=== PATIENT | male | born 1950 | race Caucasian/White ===

== ENCOUNTER → 2019-08-09 | Outpatient (CLI) | payer OTHER ==
[~2019-08-09] MED LIST: BARIUM SUSPENSION 2.1% (VANILLA SILQ) 450 ML PO ONE; CATHETER FLUSH 10 ML SYR IV PRN; HOLD METFORMIN - RECEIVED CONTRAST 20 ML VIAL IV SCH; IOHEXOL 350 MG/ML 100 ML (OMNIPAQUE 350) VIAL IV ONE; NS 100 ML (IVPB) BAG IV ONE
--- NOTE | 2019-08-09 13:49 | Diagnostic Imaging Report ---
PROCEDURE: CT chest with contrast, CT abdomen and pelvis with and without contrast. TECHNIQUE: Pre and post intravenous contrast axial imaging of the abdomen and pelvis and post contrast axial imaging of the chest were performed. Auto Exposure Controls were utilized during the CT exam to meet ALARA standards for radiation dose reduction. INDICATION: Prostate carcinoma with elevated PSA. COMPARISON: No prior studies are available for comparison. CT CHEST: No axillary lymphadenopathy is detected. No mediastinal or hilar lymphadenopathy is detected. No pericardial or pleural fluid is detected. The lungs are clear. No infiltrates are seen. No nodules or masses are detected. Osseous structures are unremarkable. IMPRESSION: Unremarkable CT of the chest. No thoracic lymphadenopathy or evidence of pulmonary metastatic disease is identified. CT ABDOMEN AND PELVIS: No discrete liver mass is identified. The gallbladder is unremarkable. No biliary ductal dilatation is seen. The pancreas and spleen are unremarkable. No adrenal mass is identified. Kidneys are unremarkable. No definite calculi or hydronephrosis is detected. Aorta is calcified but non-aneurysmal. No central retroperitoneal or mesenteric lymphadenopathy is seen. No inguinal or iliac lymphadenopathy is identified. The bowel loops are normal caliber. There is no obstruction. There is no free fluid or fluid collection identified. Partially filled urinary bladder is unremarkable. There appears to be a TURP defect present. Prostate is unremarkable. IMPRESSION: Essentially unremarkable CT of the abdomen and pelvis. No abdominal or pelvic lymphadenopathy or evidence of metastatic disease is detected. Dictated by: Dictated on workstation # [id number]
--- NOTE | 2019-08-09 16:02 | Diagnostic Imaging Report ---
INDICATION: Prostate carcinoma. TECHNIQUE: Patient was administered 24.6 mCi of technetium-99m MDP intravenously, and whole body imaging was performed after a 3-hour delay. COMPARISON: No prior studies are available for comparison. FINDINGS: There is normal uptake of activity by the axial and appendicular skeleton. There is uptake by both kidneys with excretion into the urinary bladder. Tiny focus of mild uptake involving a right posterior approximately eighth rib is noted, indeterminate. No other suspicious foci are identified. IMPRESSION: Unremarkable whole body bone scan with the exception of a subtle tiny focus of mild uptake involving the right posterior eighth rib. No CT correlate is identified. Continued follow-up could be obtained. Dictated by: Dictated on workstation # [id number]
== END ==
LOC: CARD 12:18
PROVIDERS: ATTEND Internal Medicine Hematology & Oncology
DX: C61 Malignant neoplasm of prostate (principal)
CPT/HCPCS: 71260; 74178; 78306

== ENCOUNTER 2019-08-25 11:02 | Outpatient (RCR) | payer OTHER ==
[2019-07-29 13:21] LABS: BASOPHILS # (AUTO) 0.1 10^3/uL (0.0-0.1); BASOPHILS % (AUTO) 1 % (0-10); EOSINOPHILS # (AUTO) 0.6 10^3/uL (0.0-0.3); EOSINOPHILS % (AUTO) 9 % (0-10); HEMATOCRIT 40 % (40-54); HEMOGLOBIN 13.9 G/DL (13.3-17.7); LYMPHOCYTES % (AUTO) 29 % (12-44); MEAN CORPUSCULAR HEMOGLOBIN 30 PG (25-34); MEAN CORPUSCULAR HGB CONC 35 G/DL (32-36); MEAN CORPUSCULAR VOLUME 87 FL (80-99); MONOCYTES # (AUTO) 0.5 X 10^3 (0.0-1.0); MONOCYTES % (AUTO) 7 % (0-12); NEUTROPHILS # (AUTO) 3.7 X 10^3 (1.8-7.8); NEUTROPHILS % (AUTO) 54 % (42-75); PLATELET COUNT 209 10^3/uL (130-400); WHITE BLOOD COUNT 6.9 10^3/uL (4.3-11.0)
[2019-07-29 13:47] LABS: ALANINE AMINOTRANSFERASE 32 U/L (0-55); ALBUMIN 4.6 GM/DL (3.2-4.5); ALKALINE PHOSPHATASE 51 U/L (40-136); BILIRUBIN,TOTAL 0.3 MG/DL (0.1-1.0); BUN/CREATININE RATIO 17; CALCIUM 9.5 MG/DL (8.5-10.1); CARBON DIOXIDE 19 MMOL/L (21-32); CHLORIDE 108 MMOL/L (98-107); CREATININE SERUM 0.98 MG/DL (0.60-1.30); GFR ESTIMATED > 60; GLUCOSE 190 MG/DL (70-105); POTASSIUM 4.4 MMOL/L (3.6-5.0); SODIUM 141 MMOL/L (135-145); TOTAL PROTEIN 7.6 GM/DL (6.4-8.2)
== END 2019-10-27 | disposition home or self-care (01) ==
LOC: ONC 11:02
PROVIDERS: ATTEND Internal Medicine Hematology & Oncology
DX: C61 Malignant neoplasm of prostate (principal); I10 Essential (primary) hypertension; E11.9 Type 2 diabetes mellitus without complications; R07.9 Chest pain, unspecified; R00.2 Palpitations
CPT/HCPCS: 80053; 84153; 85025; 99205; 99213; 99214

== ENCOUNTER → 2020-06-13 | Outpatient (CLI) | payer OTHER ==
[~2020-06-13] MED LIST changes: -BARIUM SUSPENSION 2.1% (VANILLA SILQ) 450 ML PO ONE; -CATHETER FLUSH 10 ML SYR IV PRN; +GOSERELIN (ZOLADEX) 10.8 MG SYR SQ SCH; -HOLD METFORMIN - RECEIVED CONTRAST 20 ML VIAL IV SCH; -IOHEXOL 350 MG/ML 100 ML (OMNIPAQUE 350) VIAL IV ONE; -NS 100 ML (IVPB) BAG IV ONE
[2020-06-13 09:43] LABS: BASOPHILS # (AUTO) 0.1 10^3/uL (0.0-0.1); BASOPHILS % (AUTO) 1 % (0-10); EOSINOPHILS # (AUTO) 2.4 10^3/uL (0.0-0.3); EOSINOPHILS % (AUTO) 29 % (0-10); HEMATOCRIT 37 % (40-54); HEMOGLOBIN 12.8 g/dL (13.3-17.7); LYMPHOCYTES % (AUTO) 23 % (12-44); MEAN CORPUSCULAR HEMOGLOBIN 31 pg (25-34); MEAN CORPUSCULAR HGB CONC 34 g/dL (32-36); MEAN CORPUSCULAR VOLUME 90 fL (80-99); MEAN PLATELET VOLUME 10.2 fL (9.0-12.2); MONOCYTES # (AUTO) 0.6 10^3/uL (0.0-1.0); MONOCYTES % (AUTO) 7 % (0-12); NEUTROPHILS # (AUTO) 3.4 10^3/uL (1.8-7.8); NEUTROPHILS % (AUTO) 40 % (42-75); PLATELET COUNT 210 10^3/uL (130-400); WHITE BLOOD COUNT 8.5 10^3/uL (4.3-11.0)
[2020-06-13 09:48] LABS: ALBUMIN 4.4 GM/DL (3.2-4.5); BILIRUBIN,TOTAL 0.7 MG/DL (0.1-1.0); CALCIUM 9.6 MG/DL (8.5-10.1); CREATININE SERUM 1.23 MG/DL (0.60-1.30); POTASSIUM 4.6 MMOL/L (3.6-5.0); TOTAL PROTEIN 7.2 GM/DL (6.4-8.2)
== END ==
LOC: EDSTATUS 10-28 15:30 → ONC 09:24
PROVIDERS: ATTEND Internal Medicine Hematology & Oncology
DX: Z51.11 Encounter for antineoplastic chemotherapy (principal); C61 Malignant neoplasm of prostate; E11.9 Type 2 diabetes mellitus without complications; E78.00 Pure hypercholesterolemia, unspecified; I10 Essential (primary) hypertension
CPT/HCPCS: 80053; 84153; 85025; 96402; G0463

== ENCOUNTER 2020-12-04 15:16 | Outpatient (RCR) | payer OTHER ==
[2020-09-07 09:41] LABS: BASOPHILS % (AUTO) 1 % (0-10); EOSINOPHILS # (AUTO) 0.8 10^3/uL (0.0-0.3); EOSINOPHILS % (AUTO) 16 % (0-10); HEMATOCRIT 35 % (40-54); HEMOGLOBIN 12.1 g/dL (13.3-17.7); LYMPHOCYTES # (AUTO) 1.1 10^3/uL (1.0-4.0); LYMPHOCYTES % (AUTO) 21 % (12-44); MEAN CORPUSCULAR HEMOGLOBIN 31 pg (25-34); MEAN CORPUSCULAR HGB CONC 35 g/dL (32-36); MEAN CORPUSCULAR VOLUME 91 fL (80-99); MEAN PLATELET VOLUME 9.6 fL (9.0-12.2); MONOCYTES # (AUTO) 0.4 10^3/uL (0.0-1.0); MONOCYTES % (AUTO) 8 % (0-12); NEUTROPHILS # (AUTO) 2.8 10^3/uL (1.8-7.8); NEUTROPHILS % (AUTO) 53 % (42-75); PLATELET COUNT 155 10^3/uL (130-400); WHITE BLOOD COUNT 5.2 10^3/uL (4.3-11.0)
[2020-09-07 10:03] LABS: ALANINE AMINOTRANSFERASE 19 U/L (0-55); ALBUMIN 4.2 GM/DL (3.2-4.5); ALKALINE PHOSPHATASE 48 U/L (40-136); BILIRUBIN,TOTAL 0.5 MG/DL (0.1-1.0); BUN/CREATININE RATIO 17; CALCIUM 9.5 MG/DL (8.5-10.1); CARBON DIOXIDE 19 MMOL/L (21-32); CHLORIDE 107 MMOL/L (98-107); CREATININE SERUM 1.14 MG/DL (0.60-1.30); GFR ESTIMATED > 60; GLUCOSE 252 MG/DL (70-105); POTASSIUM 4.4 MMOL/L (3.6-5.0); SODIUM 140 MMOL/L (135-145); TOTAL PROTEIN 7.1 GM/DL (6.4-8.2)
[~2020-12-04 15:16] MED LIST changes: +GOSERELIN (ZOLADEX) 10.8 MG SYR SQ PRN; -GOSERELIN (ZOLADEX) 10.8 MG SYR SQ SCH; +[UNRECOGNIZED DRUG - REMARK] SQ PRN
[2020-12-04 15:33] LABS: BASOPHILS # (AUTO) 0.1 10^3/uL (0.0-0.1); BASOPHILS % (AUTO) 1 % (0-10); EOSINOPHILS % (AUTO) 19 % (0-10); HEMATOCRIT 36 % (40-54); HEMOGLOBIN 12.2 g/dL (13.3-17.7); LYMPHOCYTES # (AUTO) 1.2 10^3/uL (1.0-4.0); LYMPHOCYTES % (AUTO) 22 % (12-44); MEAN CORPUSCULAR HEMOGLOBIN 31 pg (25-34); MEAN CORPUSCULAR HGB CONC 34 g/dL (32-36); MEAN CORPUSCULAR VOLUME 90 fL (80-99); MEAN PLATELET VOLUME 9.6 fL (9.0-12.2); MONOCYTES # (AUTO) 0.4 10^3/uL (0.0-1.0); MONOCYTES % (AUTO) 7 % (0-12); NEUTROPHILS # (AUTO) 2.7 10^3/uL (1.8-7.8); NEUTROPHILS % (AUTO) 50 % (42-75); PLATELET COUNT 143 10^3/uL (130-400); WHITE BLOOD COUNT 5.4 10^3/uL (4.3-11.0)
[2020-12-04 15:54] LABS: ALBUMIN 4.2 GM/DL (3.2-4.5); BILIRUBIN,TOTAL 0.4 MG/DL (0.1-1.0); CALCIUM 9.2 MG/DL (8.5-10.1); CREATININE SERUM 1.53 MG/DL (0.60-1.30); POTASSIUM 4.2 MMOL/L (3.6-5.0); TOTAL PROTEIN 6.8 GM/DL (6.4-8.2)
== END 2020-12-06 | disposition home or self-care (01) ==
LOC: ONC 15:16
PROVIDERS: ATTEND Internal Medicine Hematology & Oncology
DX: C61 Malignant neoplasm of prostate (principal)
CPT/HCPCS: 80053; 84153; 85025; 96402; G0463

== ENCOUNTER 2021-02-27 10:30 | Outpatient (RCR) | payer OTHER ==
[2021-02-23 10:06] LABS: BASOPHILS % (AUTO) 1 % (0-10); EOSINOPHILS # (AUTO) 0.3 10^3/uL (0.0-0.3); EOSINOPHILS % (AUTO) 7 % (0-10); HEMATOCRIT 34 % (40-54); HEMOGLOBIN 11.9 g/dL (13.3-17.7); LYMPHOCYTES # (AUTO) 1.1 10^3/uL (1.0-4.0); LYMPHOCYTES % (AUTO) 25 % (12-44); MEAN CORPUSCULAR HEMOGLOBIN 31 pg (25-34); MEAN CORPUSCULAR HGB CONC 35 g/dL (32-36); MEAN CORPUSCULAR VOLUME 89 fL (80-99); MEAN PLATELET VOLUME 9.3 fL (9.0-12.2); MONOCYTES # (AUTO) 0.4 10^3/uL (0.0-1.0); MONOCYTES % (AUTO) 9 % (0-12); NEUTROPHILS # (AUTO) 2.7 10^3/uL (1.8-7.8); NEUTROPHILS % (AUTO) 58 % (42-75); PLATELET COUNT 151 10^3/uL (130-400); WHITE BLOOD COUNT 4.6 10^3/uL (4.3-11.0)
[2021-02-23 10:26] LABS: BILIRUBIN,TOTAL 0.7 MG/DL (0.1-1.0); CALCIUM 9.7 MG/DL (8.5-10.1); CREATININE SERUM 0.98 MG/DL (0.60-1.30); TOTAL PROTEIN 6.9 GM/DL (6.4-8.2)
[~2021-02-27 10:30] MED LIST changes: -GOSERELIN (ZOLADEX) 10.8 MG SYR SQ PRN
== END 2021-03-08 | disposition home or self-care (01) ==
LOC: ONC 10:30
PROVIDERS: ATTEND Internal Medicine Hematology & Oncology
DX: C61 Malignant neoplasm of prostate (principal); I10 Essential (primary) hypertension; E11.9 Type 2 diabetes mellitus without complications; E78.00 Pure hypercholesterolemia, unspecified
CPT/HCPCS: 96402; G0463; 80053; 84153; 85025

== ENCOUNTER → 2021-07-12 | Outpatient (CLI) | payer OTHER ==
--- NOTE | 2021-07-12 18:45 | Diagnostic Imaging Report ---
PROCEDURE: CT abdomen and pelvis without contrast. TECHNIQUE: Multiple contiguous axial images were obtained through the abdomen and pelvis without the use of intravenous contrast. Auto Exposure Controls were utilized during the CT exam to meet ALARA standards for radiation dose reduction. INDICATION: 71-year-old male with gross hematuria. COMPARISONS: 08/09/2019. FINDINGS: The lung bases are clear. Cardiac contour is normal. There is a sliver of pericardial fluid. Liver shows uniform attenuation. There is no intraparenchymal mass or ductal dilatation. Gallbladder is nondistended. Spleen and GE junction are normal. Stomach and duodenal sweep are unremarkable. Pancreas shows sharp margins. Adrenals are normal. Kidneys appear normal in size, position and contour. There is some nonspecific bilateral perinephric stranding. There is no discrete renal calculi. There is no hydronephrosis. Both ureters are seen intermittently through there course and appear unremarkable. Bladder is nondistended. Prosthetic brachytherapy seeds are noted. Nonopacified loops of small bowel are unremarkable. Large bowel contains fecal material and gas. There is no free air, free fluid or adenopathy. Nonaneurysmal aortic calcifications are seen extending to the iliac and femoral arteries. There is normal origin of the visceral arteries. Bone windows show no lytic or blastic changes. IMPRESSION: 1. Senescent chest. 2. Some nonspecific bilateral perinephric stranding seen. There is no discrete renal or ureteral calculi with no evidence of obstructive uropathy. Additional nonemergent findings, as described above. Report was faxed to the [facility] at 6:42 p.m., by sae. Dictated by: Dictated on workstation # [id number]
== END ==
LOC: RAD 17:37
PROVIDERS: ATTEND Urology
DX: R31.0 Gross hematuria (principal)
CPT/HCPCS: 74176

== ENCOUNTER 2021-07-19 13:31 | Outpatient (RCR) | payer OTHER ==
[2021-07-11 10:56] LABS: BASOPHILS % (AUTO) 1 % (0-10); EOSINOPHILS # (AUTO) 0.5 10^3/uL (0.0-0.3); EOSINOPHILS % (AUTO) 11 % (0-10); HEMATOCRIT 34 % (40-54); HEMOGLOBIN 11.7 g/dL (13.3-17.7); LYMPHOCYTES # (AUTO) 1.1 10^3/uL (1.0-4.0); LYMPHOCYTES % (AUTO) 27 % (12-44); MEAN CORPUSCULAR HEMOGLOBIN 31 pg (25-34); MEAN CORPUSCULAR HGB CONC 35 g/dL (32-36); MEAN CORPUSCULAR VOLUME 90 fL (80-99); MEAN PLATELET VOLUME 9.6 fL (9.0-12.2); MONOCYTES # (AUTO) 0.2 10^3/uL (0.0-1.0); MONOCYTES % (AUTO) 5 % (0-12); NEUTROPHILS # (AUTO) 2.3 10^3/uL (1.8-7.8); NEUTROPHILS % (AUTO) 56 % (42-75); PLATELET COUNT 164 10^3/uL (130-400); WHITE BLOOD COUNT 4.1 10^3/uL (4.3-11.0)
[2021-07-11 11:17] LABS: ALBUMIN 4.1 GM/DL (3.2-4.5); BILIRUBIN,TOTAL 0.5 MG/DL (0.1-1.0); CALCIUM 9.3 MG/DL (8.5-10.1); CREATININE SERUM 1.16 MG/DL (0.60-1.30); POTASSIUM 4.5 MMOL/L (3.6-5.0); TOTAL PROTEIN 6.9 GM/DL (6.4-8.2)
== END 2021-07-20 | disposition home or self-care (01) ==
LOC: ONC 13:31
PROVIDERS: ATTEND Internal Medicine Hematology & Oncology
DX: C61 Malignant neoplasm of prostate (principal); I10 Essential (primary) hypertension; E11.9 Type 2 diabetes mellitus without complications; E78.00 Pure hypercholesterolemia, unspecified
CPT/HCPCS: 80053; 84153; 85025; 96402; 99213

== ENCOUNTER 2021-09-17 05:41 | Outpatient (CLI) | payer SELFPAY ==
[~2021-09-17] VITALS: Ht 170.2 cm; Wt 91.7 kg
[2021-09-19] MEDS ORDERED: HYDR-3817 PO (14:53)
[2021-09-19] MEDS ORDERED: METF-399 PO (14:53)
[2021-09-19] MEDS ORDERED: GOSE10.8 SQ (14:53)
[2021-09-19] MEDS ORDERED: ATOR20TA66 PO (14:53)
[2021-09-19] MEDS ORDERED: GLIP10TA13 PO (14:53)
[2021-09-19] MEDS ORDERED: ALLO100T PO (14:53)
[2021-09-19] MEDS ORDERED: RANO500T3 PO (14:53)
[2021-09-19] MEDS ORDERED: BICA50TA5 PO (14:53)
[2021-09-19] MEDS ORDERED: LINA145C PO (14:53)
[2021-09-19] MEDS ORDERED: ASPI-999 PO (14:53)
[2021-09-19] MEDS ORDERED: LISI20TA26 PO (14:53)
[2021-09-19] MEDS ORDERED: DICL75TA2 PO (14:53)
[2021-09-19] MEDS ORDERED: DOXA4TAB2 PO (14:53)
[2021-09-19] MEDS ORDERED: AMLO-251 PO (14:53)
== END 2021-09-20 09:58 | disposition home or self-care (01) ==
LOC: PREOP 05:41
PROVIDERS: ATTEND Surgery
DX: Z01.818 Encounter for other preprocedural examination (principal)

== ENCOUNTER 2021-09-24 09:35 | Day surgery (SDC) | payer OTHER ==
[~2021-09-24] VITALS: Ht 170.2 cm; Wt 91.7 kg
[~2021-09-24 09:35] MED LIST changes: +ALLO100T PO; +AMLO-251 PO; +ASPI-999 PO; +ATOR20TA66 PO; +BICA50TA5 PO; +DICL75TA2 PO; +DOXA4TAB2 PO; +GLIP10TA13 PO; +GOSE10.8 SQ; +HYDR-3817 PO; +LINA145C PO; +LISI20TA26 PO; +METF-399 PO; +RANO500T3 PO; -[UNRECOGNIZED DRUG - REMARK] SQ PRN
[2021-09-24] MEDS ORDERED: LACTATED RINGERS 1,000 ML IV STA (09:46)
[2021-09-24] MEDS ORDERED: LACTATED RINGERS 1,000 ML IV ONE (09:49)
[2021-09-24 10:00] VITALS: BP 209/94
--- NOTE | 2021-09-24 10:49 | Progress Note-Pre Operative ---
Pre-Operative Progress Note H&P Reviewed The H&P was reviewed, patient examined and no changes noted. Time Seen by Provider: 10:46 Date H&P Reviewed: Sep 24, 2021 Time H&P Reviewed: 10:46 Pre-Operative Diagnosis: Rectal bleed SHIRA SANFORD DO Sep 24, 2021 10:49
[2021-09-24] MEDS ORDERED: PROPOFOL INJECTION 50 ML IV ONE (11:06)
[2021-09-24 11:55] VITALS: BP 146/72
--- NOTE | 2021-09-24 11:59 | Progress Note-Post Operative ---
Post-Operative Progess Note Surgeon (s)/Director Of Special Services (s) Surgeon SHIRA SANFORD DO Director Of Special Services: DEBI Barrow Pre-Operative Diagnosis Rectal bleed Post-Operative Diagnosis Polyps Diverticula Int hemorrhoids Procedure & Operative Findings Date of Procedure 09/24/21 Procedure Performed/Findings Colon with snare polypectomy PROCEDURE NOTE: After informed consent was obtained, the patient was brought to the endoscopy suite, placed in bed in left lateral decubitus position. He was administered IV sedation by the BUNCH BREAKER MACHINE OPERATOR who then monitored his vitals the entire time, heart rate, blood pressure and pulse ox and the scope was inserted, pushed all the way to about 150 cm and pushed into the cecum. Took a picture of appendiceal orif ice and noted the ileocecal valve. Slowly withdrew the scope insufflating to look circumferentially at the becker starting in the cecum, up the ascending colon to the hepatic flexure and then down the transverse colon. Found a large flat polyp and elected to remove it with snare polypectomy. Continued to the splenic flexure and into the descending colon. I found four polyps here, removed them all with snare and also saw diverticula; which I took a picture of. Finally down to the sigmoid and then into the rectal vault and retroflexed the scope. Took picture of the internal hemorrhoids. I did a GHASSAN and it felt like there was scarring/fullness in the prostate, but this also felt like it was too low because it was just above the dentate line. The patient tolerated the procedure. He was recovered in endoscopy suite. Anesthesia Type IV sedation by BUNCH BREAKER MACHINE OPERATOR Estimated Blood Loss Estimated blood loss (mL): scant Specimens/Packing Specimens Removed transverse polyp descending polyp x 4 SHIRA SANFORD DO Sep 24, 2021 11:59
[2021-09-24 12:00] VITALS: BP 134/70
--- NOTE | 2021-09-24 12:01 | Endoscopy Discharge Instruct ---
Endo Procedure/Findings Findings 1.: Polyp 2.: Diverticulosis 3.: Internal Hemorrhoids Discharge Instructions - Activity: You might feel a little sleepy until tomorrow. This is due to the medicine you received to relax you. Until tomorrow, you should: NOT drive a car, operate machinery or power tools. NOT drink any alcoholic beverages. NOT make any important decisions or sign importortant papers. Do not return to work until tomorrow, unless otherwise instructed. Resume previous activities tomorrow. Diet: Start by taking liquids. If you tolerate liquids, advance to solid food. 1.: Colonscopy in 3 years Notify Physician - If you experience excessive bleeding, unusual abdominal pain, fever, or chest pain, contact your doctor immediately. SHIRA SANFORD DO Sep 24, 2021 12:01
[2021-09-24 12:05] VITALS: BP 145/77
[2021-09-24 12:25] VITALS: BP 200/91
--- NOTE | 2021-09-24 13:17 | Anesthesia-General Post-Op ---
MAC Patient Condition Mental Status/LOC: Same as Preop Cardiovascular: Satisfactory Nausea/Vomiting: Absent Respiratory: Satisfactory Pain: Controlled Complications: Absent Post Op Complications Complications None Follow Up Care/Instructions Patient Instructions None needed. Anesthesiology Discharge Order Discharge Order Patient is doing well, no complaints, stable vital signs, no apparent adverse anesthesia problems. No complications reported per nursing. LAURA SCHNEIDER CRNA Sep 24, 2021 13:17
== END 2021-09-24 12:35 | disposition home or self-care (01) ==
LOC: ENDO 09:35
PROVIDERS: ATTEND Surgery
DX: D12.3 Benign neoplasm of transverse colon (principal); D12.4 Benign neoplasm of descending colon; D12.2 Benign neoplasm of ascending colon; K57.31 Diverticulosis of large intestine without perforation or abscess with bleeding; K64.8 Other hemorrhoids; E66.9 Obesity, unspecified; Z68.32 Body mass index [BMI] 32.0-32.9, adult; Z85.46 Personal history of malignant neoplasm of prostate
CPT/HCPCS: 88305

== ENCOUNTER 2021-10-26 13:32 | Outpatient (RCR) | payer OTHER ==
[2021-10-19 10:49] LABS: BASOPHILS % (AUTO) 1 % (0-10); EOSINOPHILS # (AUTO) 0.6 10^3/uL (0.0-0.3); EOSINOPHILS % (AUTO) 11 % (0-10); HEMATOCRIT 34 % (40-54); HEMOGLOBIN 11.5 g/dL (13.3-17.7); LYMPHOCYTES % (AUTO) 19 % (12-44); MEAN CORPUSCULAR HEMOGLOBIN 31 pg (25-34); MEAN CORPUSCULAR HGB CONC 34 g/dL (32-36); MEAN CORPUSCULAR VOLUME 92 fL (80-99); MEAN PLATELET VOLUME 9.1 fL (9.0-12.2); MONOCYTES # (AUTO) 0.4 10^3/uL (0.0-1.0); MONOCYTES % (AUTO) 7 % (0-12); NEUTROPHILS # (AUTO) 3.4 10^3/uL (1.8-7.8); NEUTROPHILS % (AUTO) 62 % (42-75); PLATELET COUNT 165 10^3/uL (130-400); WHITE BLOOD COUNT 5.4 10^3/uL (4.3-11.0)
[2021-10-19 11:08] LABS: ALBUMIN 4.1 GM/DL (3.2-4.5); BILIRUBIN,TOTAL 0.5 MG/DL (0.1-1.0); CALCIUM 9.3 MG/DL (8.5-10.1); CREATININE SERUM 1.27 MG/DL (0.60-1.30); POTASSIUM 4.4 MMOL/L (3.6-5.0); TOTAL PROTEIN 6.8 GM/DL (6.4-8.2)
[~2021-10-26 13:32] MED LIST changes: +GOSERELIN (ZOLADEX) 10.8 MG SYR SQ PRN; +[UNRECOGNIZED DRUG - REMARK] SQ PRN
== END 2021-11-17 | disposition home or self-care (01) ==
LOC: ONC 13:32
PROVIDERS: ATTEND Internal Medicine Hematology & Oncology
DX: C61 Malignant neoplasm of prostate (principal); D64.9 Anemia, unspecified; I10 Essential (primary) hypertension; E11.9 Type 2 diabetes mellitus without complications; E78.00 Pure hypercholesterolemia, unspecified
CPT/HCPCS: 36415; 80053; 84153; 85025

== ENCOUNTER → 2022-01-17 | Outpatient (RCR) | payer OTHER ==
[~2022-01-17] MED LIST changes: -GOSERELIN (ZOLADEX) 10.8 MG SYR SQ PRN; -[UNRECOGNIZED DRUG - REMARK] SQ PRN
[2022-01-17 14:04] LABS: BASOPHILS # (AUTO) 0.1 10^3/uL (0.0-0.1); BASOPHILS % (AUTO) 1 % (0-10); EOSINOPHILS # (AUTO) 0.8 10^3/uL (0.0-0.3); EOSINOPHILS % (AUTO) 14 % (0-10); HEMATOCRIT 35 % (40-54); HEMOGLOBIN 12.3 g/dL (13.3-17.7); LYMPHOCYTES # (AUTO) 1.5 10^3/uL (1.0-4.0); LYMPHOCYTES % (AUTO) 26 % (12-44); MEAN CORPUSCULAR HEMOGLOBIN 31 pg (25-34); MEAN CORPUSCULAR HGB CONC 35 g/dL (32-36); MEAN CORPUSCULAR VOLUME 88 fL (80-99); MEAN PLATELET VOLUME 9.4 fL (9.0-12.2); MONOCYTES # (AUTO) 0.4 10^3/uL (0.0-1.0); MONOCYTES % (AUTO) 7 % (0-12); NEUTROPHILS % (AUTO) 52 % (42-75); PLATELET COUNT 173 10^3/uL (130-400); WHITE BLOOD COUNT 5.8 10^3/uL (4.3-11.0)
[2022-01-17 14:33] LABS: ALBUMIN 4.4 GM/DL (3.2-4.5); BILIRUBIN,TOTAL 0.4 MG/DL (0.1-1.0); CALCIUM 9.8 MG/DL (8.5-10.1); CREATININE SERUM 0.82 MG/DL (0.60-1.30); POTASSIUM 4.4 MMOL/L (3.6-5.0); TOTAL PROTEIN 7.3 GM/DL (6.4-8.2)
== END ==
LOC: ONC 13:07
PROVIDERS: ATTEND Internal Medicine Hematology & Oncology
DX: C61 Malignant neoplasm of prostate (principal); I10 Essential (primary) hypertension; E11.9 Type 2 diabetes mellitus without complications; E78.00 Pure hypercholesterolemia, unspecified
CPT/HCPCS: 80053; 82728; 83540; 83550; 84153; 85025

== ENCOUNTER 2022-01-25 13:08 | Outpatient (RCR) | payer OTHER ==
[~2022-01-25 13:08] MED LIST changes: +[UNRECOGNIZED DRUG - REMARK] SQ PRN
== END 2022-02-17 | disposition home or self-care (01) ==
LOC: ONC 13:08
PROVIDERS: ATTEND Internal Medicine Hematology & Oncology
DX: C61 Malignant neoplasm of prostate (principal); D64.9 Anemia, unspecified; I10 Essential (primary) hypertension; E11.9 Type 2 diabetes mellitus without complications; E78.00 Pure hypercholesterolemia, unspecified
CPT/HCPCS: 99213

== ENCOUNTER → 2022-04-19 | Outpatient (RCR) | payer OTHER ==
[~2022-04-19] MED LIST changes: -[UNRECOGNIZED DRUG - REMARK] SQ PRN
[2022-04-19 11:11] LABS: BASOPHILS % (AUTO) 1 % (0-10); EOSINOPHILS # (AUTO) 0.7 10^3/uL (0.0-0.3); EOSINOPHILS % (AUTO) 13 % (0-10); HEMATOCRIT 35 % (40-54); HEMOGLOBIN 12.3 g/dL (13.3-17.7); LYMPHOCYTES # (AUTO) 1.2 10^3/uL (1.0-4.0); LYMPHOCYTES % (AUTO) 22 % (12-44); MEAN CORPUSCULAR HEMOGLOBIN 31 pg (25-34); MEAN CORPUSCULAR HGB CONC 35 g/dL (32-36); MEAN CORPUSCULAR VOLUME 89 fL (80-99); MEAN PLATELET VOLUME 9.5 fL (9.0-12.2); MONOCYTES # (AUTO) 0.4 10^3/uL (0.0-1.0); MONOCYTES % (AUTO) 7 % (0-12); NEUTROPHILS % (AUTO) 57 % (42-75); PLATELET COUNT 163 10^3/uL (130-400); WHITE BLOOD COUNT 5.2 10^3/uL (4.3-11.0)
[2022-04-19 11:47] LABS: ALBUMIN 4.3 GM/DL (3.2-4.5); BILIRUBIN,TOTAL 0.6 MG/DL (0.1-1.0); CALCIUM 9.7 MG/DL (8.5-10.1); CREATININE SERUM 1.09 MG/DL (0.60-1.30); POTASSIUM 4.1 MMOL/L (3.6-5.0); TOTAL PROTEIN 7.1 GM/DL (6.4-8.2)
== END ==
LOC: ONC 10:55
PROVIDERS: ATTEND Internal Medicine Hematology & Oncology
DX: C61 Malignant neoplasm of prostate (principal); D64.9 Anemia, unspecified; I10 Essential (primary) hypertension; E11.9 Type 2 diabetes mellitus without complications; E78.00 Pure hypercholesterolemia, unspecified
CPT/HCPCS: 36415; 80053; 82728; 83540; 83550; 84153; 84403; 85025

== ENCOUNTER 2022-04-25 15:14 | Outpatient (RCR) | payer OTHER ==
[~2022-04-25 15:14] MED LIST changes: +[UNRECOGNIZED DRUG - REMARK] SQ PRN
== END 2022-05-20 | disposition home or self-care (01) ==
LOC: ONC 15:14
PROVIDERS: ATTEND Internal Medicine Hematology & Oncology
DX: C61 Malignant neoplasm of prostate (principal); D64.9 Anemia, unspecified; I10 Essential (primary) hypertension; E11.9 Type 2 diabetes mellitus without complications; E78.00 Pure hypercholesterolemia, unspecified

== ENCOUNTER 2022-06-11 08:00 | Day surgery (SDC) | payer OTHER ==
[~2022-06-11] VITALS: Ht 170.2 cm; Wt 93.7 kg
[2022-06-11 07:40] VITALS: BP 219/106
[2022-06-11 07:48] LABS: HEMATOCRIT 38 % (40-54); HEMOGLOBIN 13.1 g/dL (13.3-17.7); MEAN CORPUSCULAR HEMOGLOBIN 31 pg (25-34); MEAN CORPUSCULAR HGB CONC 35 g/dL (32-36); MEAN CORPUSCULAR VOLUME 89 fL (80-99); MEAN PLATELET VOLUME 9.2 fL (9.0-12.2); PLATELET COUNT 175 10^3/uL (130-400); WHITE BLOOD COUNT 5.9 10^3/uL (4.3-11.0)
[~2022-06-11 08:00] MED LIST changes: +HEParin (CATH LAB) 2,000 ML IV ONE; +LIDOCAINE 1% INJ 30 ML (XYLOCAINE) VIAL ONE; +NS IV 1000 ML 1,000 ML IV SCH; +NS IV 1000 ML 1,000 ML ONE; -[UNRECOGNIZED DRUG - REMARK] SQ PRN
[2022-06-11 08:05] LABS: INR 0.9 (0.8-1.4); PROTHROMBIN TIME PATIENT 12.9 SEC (12.2-14.7)
[2022-06-11 08:12] LABS: ALANINE AMINOTRANSFERASE 15 U/L (0-55); ALBUMIN 4.7 GM/DL (3.2-4.5); ALKALINE PHOSPHATASE 58 U/L (40-136); BILIRUBIN,TOTAL 0.6 MG/DL (0.1-1.0); BUN/CREATININE RATIO 11; CALCIUM 10.2 MG/DL (8.5-10.1); CARBON DIOXIDE 24 MMOL/L (21-32); CHLORIDE 104 MMOL/L (98-107); CHOLESTEROL 250 MG/DL (< 200); CREATININE SERUM 1.05 MG/DL (0.60-1.30); GFR ESTIMATED 75; GLUCOSE 161 MG/DL (70-105); HDL CHOLESTEROL 47 MG/DL (40-60); POTASSIUM 3.8 MMOL/L (3.6-5.0); SODIUM 142 MMOL/L (135-145); TOTAL PROTEIN 7.7 GM/DL (6.4-8.2); TRIGLYCERIDES 133 MG/DL (<150); VLDL CHOLESTEROL 27 MG/DL (5-40)
[2022-06-11] MEDS ORDERED: METF-399 PO (08:34)
[2022-06-11] MEDS ORDERED: fentaNYL INJ 100 MCG/2 ML AMP ONE (09:27)
[2022-06-11] MEDS ORDERED: MIDAZOLAM 5 MG/5 ML (VERSED) VIAL ONE (09:27)
[2022-06-11] MEDS ORDERED: HEParin 1000 UNIT/ML (10ML VIAL) FOR BOLUS ONE (09:58)
[2022-06-11] MEDS ORDERED: meTOprolol 5 MG/5 ML (LOPRESSOR) VIAL ONE (10:10)
--- NOTE | 2022-06-11 10:19 | Cardiac Procedure Note-CS/ASA ---
Pre-Procedure Note Pre-Op Procedure Note Date of Available H&P: Jun 10, 2022 Date H&P Reviewed: Jun 11, 2022 Time H&P Reviewed: 09:30 History & Physical: H&P Reviewed, No changes noted Conscious Sedation Pre-Proced ASA Score 3 For ASA 3 and 4: Consider anesthesia and medical clearance. Also, for patients with a history of failed moderate sedation consider anesthesia. Airway Lungs Heart ASA score ASA 1: a normal healthy patient ASA 2: a patient with a mild systemic disease (mid diabetes, controlled hypertension, obesity ASA 3: a patient with a severe systemic disease that limits activity (angina, COPD, prior Myocardial infarction) ASA 4: a patient with an incapacitating disease that is a constant threat to life (CHF, renal failure) ASA 5: a moribund patient not expected to survive 24 hrs. (ruptured aneurysm) ASA 6: a declared brain- patient whose organs are being harvested. For emergent operations, add the letter E after the classification Mallampati Classification Grade 2 Sedation Plan Analgesia, Amnesia, Plan communicated to team members The patient is an appropriate candidate to undergo the planned procedure, sedation, and anesthesia. The patient immediately re-assessed prior to indication. CHINO PETERSEN MD FACP FAC CCDS Jun 11, 2022 10:19
[2022-06-11] MEDS ORDERED: PATIENT MAY USE OWN MEDS, ALL PO SCH (10:30)
[2022-06-11] MEDS ORDERED: HYDROcodone/APAP 7.5 MG/325 MG (LORTAB, LORCET PLUS) TABLET PO PRN (10:30)
[2022-06-11] MEDS ORDERED: NS IV 1000 ML 1,000 ML IV SCH (10:30)
[2022-06-11] MEDS ORDERED: GOSERELIN ACETATE SQ SCH (10:30)
[2022-06-11 10:45] VITALS: BP 143/74
[2022-06-11 11:00] VITALS: BP 144/74
[2022-06-11 11:15] VITALS: BP 150/72
[2022-06-11 12:15] VITALS: BP 144/75
--- NOTE | 2022-06-11 12:54 | CARDIAC CATHETERIZATION ---
DATE OF SERVICE: 06/11/2022 CARDIAC CATHETERIZATION REPORT INDICATION FOR PROCEDURE: The patient is a 73-year-old gentleman with multiple coronary disease, risk factors, including diabetes and hypertension, who has been experiencing symptoms of chest discomfort with exertion. Cardiac catheterization was carried out today after having obtained informed consent. DESCRIPTION OF PROCEDURE: The patient was brought to the cardiac catheterization laboratory in a fasting state. Right groin was prepared and draped in the usual sterile fashion. A 1% lidocaine was used for local anesthesia. A modified Seldinger technique was used to advance a 5-[place] sheath in the right femoral artery, 5-[place] JL4 catheter was used for left coronary angiography, 5-[place] JR4 catheter was used for right coronary angiography. A 5-[place] pigtail catheter was used for left heart catheterization and left ventricular angiography. Angiography of the right femoral artery was carried out through the sheath at the end of the procedure and Mynx was used to achieve hemostasis. He tolerated the procedure well. HEMODYNAMICS: Left ventricular end diastolic pressure following coronary angiography was 11 mmHg. There is no significant pressure gradient on pullback across the aortic valve. Ascending aortic pressure was 134/72 with a mean of 100 mmHg. CORONARY ANGIOGRAPHY: Left main coronary artery does not exhibit significant disease. Left anterior descending artery has 70% to 80% proximal stenosis and 60% to 70% distal stenosis. Left circumflex artery has 95% ostial stenosis and 95% mid vessel stenosis. Right coronary artery does not exhibit significant disease except for an approximately 90% stenosis in a small caliber posterior descending branch. Left ventricular angiography: Left ventricular angiography was carried out in the GRACE projection. Global left ventricular systolic function normal. No regional wall motion abnormalities were seen in this view and the ejection fraction is approximately 60%. CONCLUSION: 1. Multivessel coronary artery disease that includes 70% to 80% proximal left anterior descending, 95% ostial and mid vessel disease of the left circumflex, and 90% proximal stenosis of a small caliber posterior descending branch of the right coronary. 2. Normal left ventricular end-diastolic pressure (11 mmHg). 3. Normal global left ventricular systolic function with an ejection fraction of approximately 60%. DISCUSSION AND RECOMMENDATIONS: Given this coronary anatomy and a history of diabetes mellitus, coronary artery bypass surgery appears to be the best treatment option. Accordingly, we will follow Dr. argueta at [facility]. He has reviewed the films and has accepted the patient in transfer. We will confer with the patient and his family. If they agree, we will transfer for consideration of coronary artery bypass surgery. ADDENDUM (1:50 pm, 06/11/22) After a long discussion with him (his daughter Belle childers) he has decided to be treated medically only. He fully understands the implications of his decision. We will try to optimize treatment for angina and have advised close outpt f/u. Questions answered Job ID: [id number] DocumentID: [id number] Dictated Date: 06/11/2022 10:27:55 Supervisor Hardboard Date: 06/11/2022 12:52:00 Dictated By: CHINO PETERSEN MD; MA; FACP; FACC; MACARIO
--- NOTE | 2022-06-11 13:56 | Discharge Inst-Post CATH ---
Discharge Inst-CATH/EP Post Cardiac Cath/EP D/C Inst Follow Up/Plan F/u with Dr Milton in 2 weeks ACTIVITY * Go Home directly and rest. * Limit activity of the leg (or wrist if it was used) for 7 days including aerobics, swimming, jogging, bicycling, etc. * Restrict stair-climbing for 7 days if possible, if not, climb up with your no n-cath leg, then bring together on the same step. * Avoid lifting, pushing, pulling or excessive movement of the affected ext remity for 7 days. * Customary sexual activity may be resumed after 2 days-use caution not to use a position that strains or causes pain to the affected extremity. * No driving for 24 hours. * NO SMOKING. * Avoid straining for bowel movements for 7 days. * Gentle walking on level ground is allowed. * Returning to work will depend on the type of procedure and the results. Your doctor will discuss this with you. CALL YOUR DOCTOR FOR ANY OF THE FOLLOWING: *If bleeding from the puncture site occurs- Apply gentle pressure to site with clean cloth and call your doctor or EMS. * If a knot or lump forms under the skin, increases in size, or causes pain. * If bruising appears to be worsening or moving further down your leg instead of disappearing. * Temperature above 101 F. CARE OF YOUR GROIN INCISION; * Bruising or purple discoloration of the skin near the puncture site is common. * You may shower only, no bathtub bathing for 5 days. Be careful to avoid slipping as your leg may feel stiff. * If a closure device was used on your femoral artery, please see the attached guide regarding care of the device and your leg. * Leave dressing on FOR 24 hours. CARE OF YOUR WRIST INCISION; * Bruising or purple discoloration of the skin near the puncture site is common. * You may shower. * DO NOT submerge wrist. * Leave dressing on FOR 24 hours. CHINO MILTON MD [facility] CCDS Jun 11, 2022 13:56
[2022-06-11] MEDS ORDERED: CLOP75TA69 PO (14:00)
[2022-06-11] MEDS ORDERED: ISOS30TA82 PO (14:00)
[2022-06-11] MEDS ORDERED: AMLO-251 PO (14:00)
[2022-06-11] MEDS ORDERED: METO-352 PO (14:00)
--- NOTE | 2022-06-11 14:03 | Discharge Inst-Cardiology ---
Discharge Inst-Cardiac Discharge Medications New Medications: Amlodipine Besylate (Amlodipine Besylate) 10 Mg Tablet 10 MG PO DAILY, #30 TAB 5 Refills Clopidogrel Bisulfate (Plavix) 75 Mg Tablet 75 MG PO DAILY, #30 TAB 5 Refills Isosorbide Mononitrate (Isosorbide Mononitrate ER) 30 Mg Tab.er.24h 30 MG PO DAILY, #30 TAB 5 Refills Metoprolol Succinate (Toprol Xl) 50 Mg Tab.er.24h 50 MG PO DAILY, #30 TAB 5 Refills Continued Medications: Allopurinol (Allopurinol) 100 Mg Tablet 100 MG PO DAILY, TAB Aspirin (Aspirin) 81 Mg Tab.chew 81 MG PO HS, TAB Bicalutamide (Bicalutamide) 50 Mg Tablet 50 MG PO DAILY, TAB Glipizide (Glipizide) 10 Mg Tablet 5 MG PO BID, TAB TAKES OF A 10MG TABLET Goserelin Acetate (Zoladex) 10.8 Mg Implant 10.8 MG SQ [id number], EA Hydrocodone/Acetaminophen (Hydrocodone-Acetamin 7.5-325) 7.5 Mg-325 Mg Tablet 1 EACH PO BID PRN for PAIN-MODERATE (5-7), TAB Lisinopril (Lisinopril) 20 Mg Tablet 20 MG PO DAILY, TAB LAST FILLED 07/06/2021 #90 Discontinued Medications: Amlodipine Besylate (Amlodipine Besylate) 10 Mg Tablet 5 MG PO DAILY, TAB TAKES OF A 10MG TABLET LAST FILLED 08/17/2021 #60 Doxazosin Mesylate (Doxazosin Mesylate) 4 Mg Tablet 4 MG PO HS, TAB Metformin HCl (Metformin HCl) 1,000 Mg Tablet 500 MG PO 0800,1200, TAB TAKES OF A 1000MG TABLET Metformin HCl (Metformin HCl) 1,000 Mg Tablet 1000 MG PO HS, TAB Patient Instructions Patient Instructions: Hold METFORMIN until the evening of 06/13/22, then resume previous home dose CHINO PETERSEN MD [facility] Jun 11, 2022 14:03
[2022-06-11] MEDS ORDERED: meTOproloL SUCCINATE 50 MG (TOPROL XL) TAB PO NR (14:45)
[2022-06-11 16:00] VITALS: BP 124/63
[2022-06-11] MEDS ORDERED: glipiZIDE 5 MG (GLUCOTROL) TAB PO SCH (17:00)
[2022-06-11] MEDS ORDERED: NON-FORMULARY MEDICATION 1 EA EA (Glipizide 5 MG) PO SCH (21:00)
[2022-06-11] MEDS ORDERED: ASPIRIN 81 MG CHEW (CHILDREN'S ASA) PO SCH (21:00)
[2022-06-11] MEDS ORDERED: doxAzosin 4 MG (CARDURA) TAB PO SCH (21:00)
[2022-06-12] MEDS ORDERED: amLODIPine 10 MG (NORVASC) TAB PO SCH (09:00)
[2022-06-12] MEDS ORDERED: ALLOPURINOL 100 MG (ZYLOPRIM) TAB PO SCH (09:00)
[2022-06-12] MEDS ORDERED: lisINopril 20 MG (PRINIVIL) TABLET PO SCH (09:00)
[2022-06-12] MEDS ORDERED: meTOproloL SUCCINATE 50 MG (TOPROL XL) TAB PO SCH (09:00)
[2022-06-12] MEDS ORDERED: NON-FORMULARY MEDICATION 1 EA EA (Bicalutamide 50 MG) PO SCH (09:00)
== END 2022-06-11 17:20 | disposition home or self-care (01) ==
LOC: CATH 08:00 → CSD 11:55 → CATH 17:20
PROVIDERS: ATTEND Internal Medicine Cardiovascular Disease
DX: I25.10 Atherosclerotic heart disease of native coronary artery without angina pectoris (principal)
CPT/HCPCS: 80053; 80061; 85027; 85610; 85730; 87081; 93458; C1760; C1894; 36415

== ENCOUNTER 2022-08-02 13:20 | Outpatient (RCR) | payer OTHER ==
[2022-07-25 14:39] LABS: BASOPHILS % (AUTO) 1 % (0-10); EOSINOPHILS # (AUTO) 0.8 10^3/uL (0.0-0.3); EOSINOPHILS % (AUTO) 12 % (0-10); HEMATOCRIT 36 % (40-54); HEMOGLOBIN 12.3 g/dL (13.3-17.7); LYMPHOCYTES # (AUTO) 1.7 10^3/uL (1.0-4.0); LYMPHOCYTES % (AUTO) 25 % (12-44); MEAN CORPUSCULAR HEMOGLOBIN 30 pg (25-34); MEAN CORPUSCULAR HGB CONC 34 g/dL (32-36); MEAN CORPUSCULAR VOLUME 89 fL (80-99); MEAN PLATELET VOLUME 9.3 fL (9.0-12.2); MONOCYTES # (AUTO) 0.5 10^3/uL (0.0-1.0); MONOCYTES % (AUTO) 8 % (0-12); NEUTROPHILS # (AUTO) 3.6 10^3/uL (1.8-7.8); NEUTROPHILS % (AUTO) 54 % (42-75); PLATELET COUNT 194 10^3/uL (130-400); WHITE BLOOD COUNT 6.7 10^3/uL (4.3-11.0)
[2022-07-25 15:25] LABS: ALBUMIN 4.4 GM/DL (3.2-4.5); BILIRUBIN,TOTAL 0.3 MG/DL (0.1-1.0); CALCIUM 9.8 MG/DL (8.5-10.1); CREATININE SERUM 1.09 MG/DL (0.60-1.30); POTASSIUM 4.6 MMOL/L (3.6-5.0); TOTAL PROTEIN 7.3 GM/DL (6.4-8.2)
[~2022-08-02 13:20] MED LIST changes: +CLOP-31 PO; -HEParin (CATH LAB) 2,000 ML IV ONE; +ISOS30TA82 PO; -LIDOCAINE 1% INJ 30 ML (XYLOCAINE) VIAL ONE; +METO-352 PO; -NS IV 1000 ML 1,000 ML IV SCH; -NS IV 1000 ML 1,000 ML ONE; +[UNRECOGNIZED DRUG - REMARK] SQ PRN
== END 2022-08-20 | disposition home or self-care (01) ==
LOC: ONC 13:20
PROVIDERS: ATTEND Internal Medicine Hematology & Oncology
DX: C61 Malignant neoplasm of prostate (principal); I25.10 Atherosclerotic heart disease of native coronary artery without angina pectoris; I10 Essential (primary) hypertension; E11.9 Type 2 diabetes mellitus without complications; E78.00 Pure hypercholesterolemia, unspecified; E07.89 Other specified disorders of thyroid; Z86.73 Personal history of transient ischemic attack (TIA), and cerebral infarction without residual deficits
CPT/HCPCS: 36415; 80053; 82728; 83540; 83550; 85025; 96402

== ENCOUNTER 2022-11-13 09:58 | Outpatient (RCR) | payer MEDICAID, OTHER ==
[2022-11-07 10:22] LABS: BASOPHILS # (AUTO) 0.1 10^3/uL (0.0-0.1); BASOPHILS % (AUTO) 1 % (0-10); EOSINOPHILS # (AUTO) 0.8 10^3/uL (0.0-0.3); EOSINOPHILS % (AUTO) 18 % (0-10); HEMATOCRIT 34 % (40-54); HEMOGLOBIN 11.5 g/dL (13.3-17.7); LYMPHOCYTES # (AUTO) 1.4 10^3/uL (1.0-4.0); LYMPHOCYTES % (AUTO) 30 % (12-44); MEAN CORPUSCULAR HEMOGLOBIN 31 pg (25-34); MEAN CORPUSCULAR HGB CONC 34 g/dL (32-36); MEAN CORPUSCULAR VOLUME 89 fL (80-99); MEAN PLATELET VOLUME 10.2 fL (9.0-12.2); MONOCYTES # (AUTO) 0.3 10^3/uL (0.0-1.0); MONOCYTES % (AUTO) 7 % (0-12); NEUTROPHILS % (AUTO) 44 % (42-75); PLATELET COUNT 136 10^3/uL (130-400); WHITE BLOOD COUNT 4.6 10^3/uL (4.3-11.0)
[2022-11-07 10:38] LABS: BILIRUBIN,TOTAL 0.6 MG/DL (0.1-1.0); CALCIUM 8.9 MG/DL (8.5-10.1); CREATININE SERUM 1.22 MG/DL (0.60-1.30); POTASSIUM 4.5 MMOL/L (3.6-5.0); TOTAL PROTEIN 6.6 GM/DL (6.4-8.2)
[~2022-11-13 09:58] MED LIST changes: -[UNRECOGNIZED DRUG - REMARK] SQ PRN
== END 2022-11-17 | disposition home or self-care (01) ==
LOC: ONC 09:58
PROVIDERS: ATTEND Internal Medicine Hematology & Oncology
DX: C61 Malignant neoplasm of prostate (principal); I10 Essential (primary) hypertension; E11.9 Type 2 diabetes mellitus without complications; E78.00 Pure hypercholesterolemia, unspecified; E07.89 Other specified disorders of thyroid; I25.10 Atherosclerotic heart disease of native coronary artery without angina pectoris; Z86.73 Personal history of transient ischemic attack (TIA), and cerebral infarction without residual deficits
CPT/HCPCS: 36415; 80053; 84153; 85025

== ENCOUNTER 2022-11-19 16:56 | Outpatient (RCR) | payer MEDICAID, OTHER ==
[2022-11-19] MEDS ORDERED: LEUPROLIDE 45 MG ELIGARD SQ SCH (17:15)
== END 2022-12-18 | disposition home or self-care (01) ==
LOC: ONC 16:56
PROVIDERS: ATTEND Internal Medicine Hematology & Oncology
DX: C61 Malignant neoplasm of prostate (principal); D64.9 Anemia, unspecified; I10 Essential (primary) hypertension; E11.9 Type 2 diabetes mellitus without complications; E78.00 Pure hypercholesterolemia, unspecified
CPT/HCPCS: 96402

== ENCOUNTER 2023-05-15 09:45 | Outpatient (RCR) | payer MEDICAID, OTHER ==
[2023-05-15 10:06] LABS: BASOPHILS # (AUTO) 0.1 10^3/uL (0.0-0.1); BASOPHILS % (AUTO) 1 % (0-10); EOSINOPHILS # (AUTO) 0.8 10^3/uL (0.0-0.3); EOSINOPHILS % (AUTO) 15 % (0-10); HEMATOCRIT 34 % (40-54); HEMOGLOBIN 11.9 g/dL (13.3-17.7); LYMPHOCYTES # (AUTO) 1.2 10^3/uL (1.0-4.0); LYMPHOCYTES % (AUTO) 22 % (12-44); MEAN CORPUSCULAR HEMOGLOBIN 31 pg (25-34); MEAN CORPUSCULAR HGB CONC 35 g/dL (32-36); MEAN CORPUSCULAR VOLUME 89 fL (80-99); MEAN PLATELET VOLUME 9.6 fL (9.0-12.2); MONOCYTES # (AUTO) 0.3 10^3/uL (0.0-1.0); MONOCYTES % (AUTO) 6 % (0-12); NEUTROPHILS # (AUTO) 3.1 10^3/uL (1.8-7.8); NEUTROPHILS % (AUTO) 55 % (42-75); PLATELET COUNT 145 10^3/uL (130-400); WHITE BLOOD COUNT 5.5 10^3/uL (4.3-11.0)
[2023-05-15 10:27] LABS: ALBUMIN 4.1 GM/DL (3.2-4.5); BILIRUBIN,TOTAL 0.5 MG/DL (0.1-1.0); CALCIUM 9.3 MG/DL (8.5-10.1); CREATININE SERUM 0.89 MG/DL (0.60-1.30); POTASSIUM 3.7 MMOL/L (3.6-5.0); TOTAL PROTEIN 6.6 GM/DL (6.4-8.2)
== END 2023-05-20 | disposition home or self-care (01) ==
LOC: ONC 09:45
PROVIDERS: ATTEND Internal Medicine Hematology & Oncology
DX: C61 Malignant neoplasm of prostate (principal); D64.9 Anemia, unspecified; I10 Essential (primary) hypertension; E11.9 Type 2 diabetes mellitus without complications; E78.00 Pure hypercholesterolemia, unspecified
CPT/HCPCS: 36415; 80053; 82728; 83540; 83550; 84153; 85025

== ENCOUNTER 2023-05-22 08:58 | Outpatient (RCR) | payer MEDICAID, OTHER ==
[2023-05-22] MEDS ORDERED: LEUPROLIDE 45 MG ELIGARD SQ SCH (10:00)
[2023-05-30] MEDS ORDERED: RANO500T6 PO (10:06)
[2023-05-30] MEDS ORDERED: FLUT15.845 NS (10:06)
[2023-05-30] MEDS ORDERED: NIFE10CA44 PO (10:06)
[2023-05-30] MEDS ORDERED: ATOR20TA66 PO (10:06)
[2023-05-30] MEDS ORDERED: DOXA4TAB2 PO (10:06)
[2023-05-30] MEDS ORDERED: METF-479 PO (10:06)
[2023-05-30] MEDS ORDERED: SITA100T12 PO (10:06)
[2023-05-30] MEDS ORDERED: GABA300C PO (10:06)
[2023-05-30] MEDS ORDERED: NITR0.4T39 SL (10:06)
== END 2023-06-19 | disposition home or self-care (01) ==
LOC: ONC 08:58
PROVIDERS: ATTEND Internal Medicine Hematology & Oncology
DX: Z51.11 Encounter for antineoplastic chemotherapy (principal); C61 Malignant neoplasm of prostate; I10 Essential (primary) hypertension; E11.9 Type 2 diabetes mellitus without complications; E78.00 Pure hypercholesterolemia, unspecified
CPT/HCPCS: 96402; 99214

== ENCOUNTER 2023-05-30 05:38 | Outpatient (CLI) | payer MEDICAID ==
[~2023-05-30] VITALS: Ht 170.2 cm; Wt 94.9 kg
[2023-05-30] MEDS ORDERED: RANO500T6 PO (10:06)
[2023-05-30] MEDS ORDERED: NITR0.4T39 SL (10:06)
[2023-05-30] MEDS ORDERED: METF-479 PO (10:06)
[2023-05-30] MEDS ORDERED: DOXA4TAB2 PO (10:06)
[2023-05-30] MEDS ORDERED: NIFE10CA44 PO (10:06)
[2023-05-30] MEDS ORDERED: ATOR20TA66 PO (10:06)
[2023-05-30] MEDS ORDERED: SITA100T12 PO (10:06)
[2023-05-30] MEDS ORDERED: FLUT15.845 NS (10:06)
[2023-05-30] MEDS ORDERED: GABA300C PO (10:06)
== END 2023-05-30 10:40 | disposition home or self-care (01) ==
LOC: PREOP 05:38
PROVIDERS: ATTEND Surgery
DX: Z01.818 Encounter for other preprocedural examination (principal)

== ENCOUNTER 2023-06-06 08:31 | Day surgery (SDC) | payer MEDICAID ==
[~2023-06-06] VITALS: Ht 170 cm; Wt 94.9 kg
[2023-06-06] VITALS (10 sets, daily range): BP systolic 139–192; BP diastolic 63–99
[~2023-06-06 08:31] MED LIST changes: +FLUT15.845 NS; +GABA300C PO; +METF-479 PO; +NIFE10CA44 PO; +NITR0.4T39 SL; +RANO500T6 PO; +SITA100T12 PO
[2023-06-06] MEDS ORDERED: CLINDAMYCIN 600 MG/50 ML IVPB 50 ML IV ONE (08:45)
[2023-06-06] MEDS ORDERED: CATHETER FLUSH 10 ML SYR IVP PRN (09:00)
[2023-06-06] MEDS ORDERED: LACTATED RINGERS 1,000 ML 1,000 ML IV PRN (09:15)
[2023-06-06] MEDS ORDERED: LIDOCAINE 2% w/EPI 1:100,000 20 ML VIAL ONE (09:28)
[2023-06-06] MEDS ORDERED: LIDOCAINE PF 2% 5 ML VIAL ONE (10:23)
[2023-06-06] MEDS ORDERED: proPOfol INJECTION 200 MG/20 ML VIAL IV ONE (10:23)
[2023-06-06] MEDS ORDERED: fentaNYL INJECTION 100 MCG/2 ML VIAL ONE ×2 (10:24→11:18)
[2023-06-06] MEDS ORDERED: MIDAZOLAM INJ 2 MG/2 ML VIAL ONE (10:24)
[2023-06-06] MEDS ORDERED: LIDOCAINE UROJET 2% GEL 10 ML PKG ONE (10:50)
[2023-06-06] MEDS ORDERED: ONDANSETRON INJECTION 4 MG/2 ML (SDV) ONE (10:56)
[2023-06-06] MEDS ORDERED: SEVOFLURANE (ULTANE) 15 ML INHAL SOLN ONE (10:56)
[2023-06-06] MEDS ORDERED: fentaNYL INJECTION 100 MCG/2 ML VIAL IVP ONE (11:15)
--- NOTE | 2023-06-06 11:23 | Progress Note-Pre Operative ---
Pre-Operative Progress Note Date of Available H&P: May 27, 2023 Date H&P Reviewed: Jun 06, 2023 Time H&P Reviewed: 10:06 History & Physical: H&P Reviewed, Patient Examed, No changes noted Pre-Operative Diagnosis: Anal Stricture SHIRA SANFORD DO Jun 06, 2023 11:23
--- NOTE | 2023-06-06 11:28 | Progress Note-Post Operative ---
Post-Operative Progess Note Surgeon (s)/Blending Kettle Tender (s) Surgeon SHIRA SANFORD DO Blending Kettle Tender: none Pre-Operative Diagnosis Anal Stricture Post-Operative Diagnosis same with rectal bleed Procedure & Operative Findings Date of Procedure 06/06/23 Procedure Performed/Findings REUA FAHAD Anesthesia Type LMA Estimated Blood Loss Estimated blood loss (mL): scant Specimens/Packing Specimens Removed none SHIRA SANFORD DO Jun 06, 2023 11:27
--- NOTE | 2023-06-06 11:31 | Discharge Inst-Surgical ---
Discharge Inst-Surgical Depart Medication/Instructions New, Converted or Re-Newed RX: Other (use home meds) Patient Instructions Follow up Appt: Make appointment for 1 week. [phone] Instructions: No lifting greater than 20 pounds. No strenuous activity. May shower in 24 hours, no tub bath or soaking. Use incentive spirometer at home as directed. No Smoking Skin/Wound Care: May remove packing in am; it may fall out sooner on its own and that is ok. Symptoms to Report: Appetite Changes, Extremity Discoloration, Numbness/Tingling, Swelling Increased, Bleeding Excessive, Eyesight Changes, Pain Increased, Urine Color Change, Constipation(Persistent), Fever over 101 degree F, Pain/Pressure in chest, Urinating Difficulty, Cough Up/Vomit Blood, Heart Beat Irreg/Pounding, Pain/Pressure in jaw, Cramps in feet or legs, Lightheadedness, Pain/Pressure in shoulder, Diarrhea(Persistent), Memory Changes Suddenly, Questions/Concerns, Weight gain consecutive days, Dizziness/Fainting, Nausea/Vomiting, Shortness of Breath, Weight gain over 2 pounds If questions or concerns contact your physician Or seek help at emergency department. Activity Activity as Tolerated: Yes Activity Instructions: Avoid Stress to Incision Driving Instructions: No Driving/Refer to Dr. Mcfadden Discharge Diet: No Restrictions (increase fluids) Diet After 24 Hours: Clear Liquid if Nauseous If Any Problems/Questions/Issu: Contact Your Physician, Go to Emergency Room Skin/Wound Care Infection Signs and Symptoms: Increased Redness, Foul Odor of Wound, Increased Drainage, Skin Itchy or Has a Rash, Increased Swelling, Temperature Above 101 F Wound Care Comment: sitz baths may help Bathing Instructions: SHIRA Benitez DO Jun 06, 2023 11:30
[2023-06-06] MEDS ORDERED: HYDROcodone/ACETAMINOPHEN 5 MG/325 MG TABLET ONE (12:38)
[2023-06-06] MEDS ORDERED: HYDROcodone/ACETAMINOPHEN 5 MG/325 MG TABLET PO ONE (12:45)
--- NOTE | 2023-06-07 00:05 | OPERATIVE REPORT ---
DATE OF SERVICE: 06/06/2023 PREOPERATIVE DIAGNOSES: Anal stricture, rectal bleed. POSTOPERATIVE DIAGNOSES: Anal stricture, rectal bleed. PROCEDURE: 1. Partial lateral internal sphincterotomy. 2. Rectal exam under anesthesia. SURGEON: Corky Llanos MD TATTOO IDENTIFIER: None. ANESTHESIA: LMA. SPECIMENS: None. BLOOD LOSS: Scant. FLUIDS: Per anesthesia. POSTOPERATIVE CONDITION: Stable. INDICATIONS FOR PROCEDURE: The patient is a 72-year-old male who has been having anal pain and trouble with having bowel movements because of anal stricture. He has had previous radiation to this area for cancer. FINDINGS: The patient had an anal stricture. The rectum looked fine. DESCRIPTION OF PROCEDURE: After informed consent was obtained, the patient was brought to the operating room and placed table in lithotomy position, sterilely prepped and draped in normal fashion, first looked with a speculum, but could not really get it open because of the stricture. So, this was then used just a half speculum to kind of look inside, the rectal mucosa looks normal. I did not see any radiation or ulcerations and at this point, then elected to do the partial lateral internal sphincterotomy at about the 5 o'clock position, infiltrated with local, then made an incision in the skin with a #15 blade. Using a hemostat, carefully dissected down, got under the external sphincter with a hemostat and then cut half of the internal sphincter with Bovie electrocautery, thus performing a partial lateral internal sphincterotomy, dropped this back down. Area was cleaned and dried and elected to place a Gelfoam with lidocaine gel into the rectum. The patient was then transferred to recovery room in stable condition. Sponge, instrument, and needle count were correct at the end of the case. Job ID: [id number] DocumentID: [id number] Dictated Date: 06/06/2023 15:33:54 Clinical Services Consultant Date: 06/07/2023 00:04:00 Dictated By: CORKY LLANOS DO
== END 2023-06-06 13:16 | disposition home or self-care (01) ==
LOC: SDC 08:31
PROVIDERS: ATTEND Surgery
DX: K62.4 Stenosis of anus and rectum (principal); K62.3 Rectal prolapse; Z92.3 Personal history of irradiation; E11.9 Type 2 diabetes mellitus without complications; E66.9 Obesity, unspecified; Z68.32 Body mass index [BMI] 32.0-32.9, adult; Z79.84 Long term (current) use of oral hypoglycemic drugs; Z85.46 Personal history of malignant neoplasm of prostate
CPT/HCPCS: 82947; 87081